=== PATIENT | female | born 2000 | race Caucasian/White ===

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

== ENCOUNTER → 2020-05-30 | Outpatient (CLI) | payer OTHER ==
[2020-05-30 16:05] LABS: Basophils # (A) 0.1 k/uL (0-0.2); Basophils % (A) 1 %; Eosinophils # (A) 0.3 k/uL (0-0.7); Eosinophils % (A) 3 %; HCT 42.5 % (34.0-46.0); HGB 13.6 gm/dL (11.4-16.0); Lymphocytes # (A) 2.5 k/uL (1.0-4.8); Lymphocytes % (A) 29 %; MCH 30.9 pg (25.0-35.0); MCHC 32.1 g/dL (31.0-37.0); MCV 96.2 fL (80.0-100.0); Mean Platelet Volume 8.3; Monocytes # (A) 0.3 k/uL (0-1.0); Monocytes % (A) 4 %; Neutrophils # (A) 5.2 k/uL (1.3-7.7); Neutrophils % (A) 61 %; Platelet Count 186 k/uL (150-450); RBC 4.42 m/uL (3.80-5.40); RDW 12.4 % (11.5-15.5); WBC 8.5 k/uL (3.8-10.6)
== END | disposition home or self-care (01) ==
LOC: LABWHC1 15:03
PROVIDERS: ATTEND Nurse Practitioner
DX: K62.5 Hemorrhage of anus and rectum (principal)
CPT/HCPCS: 36415; 85025

== ENCOUNTER 2020-06-07 09:13 | Day surgery (SDC) | payer OTHER ==
[2020-06-02 13:52] VITALS: BMI 22.4
[~2020-06-07 09:13] MED LIST: LACTATED RINGERS 1,000 ML IV SCH; LIDOCAINE 1% (10MG/ML) FOR IV START INTRADERMA PRN; MIDAZOLAM 2 MG/2 ML VIAL IV PRN
[2020-06-07 09:54] VITALS: TEMP 97.8
[2020-06-07] MEDS ORDERED: LIDOCAINE 1% INJ 10MG/ML (20 ML MDV) ONE (11:14)
[2020-06-07] MEDS ORDERED: PROPOFOL 10 MG/ML 20 ML VIAL IV ONE (11:14)
--- NOTE | 2020-06-07 12:14 | P.PCN ---
Date of Procedure: 06/07/20 Description of Procedure: Brief history: Patient is a pleasant 20-year-old female presenting for evaluation of epigastric abdominal pain and rectal bleeding with EGD and colonoscopy. Reports 2 month history of intermittent blood per rectum associated abdominal pain she reports 10 pound weight loss with decreased oral intake. No family history of inflammatory bowel disease Procedure performed: Esophagogastroduodenoscopy with biopsy Colonoscopy Estimated blood loss: Minimal. Preoperative diagnosis: [place] [facility] [place] After informed consent was obtained from the patient was brought into the endoscopy unit and IV sedation was administered by anesthesia under continuous monitoring. Initially upper endoscopy was done. The Olympus GF 190 video endoscope was inserted into the mouth and esophagus intubated without any difficulty and was gradually advanced into the stomach and duodenum and carefully examined. The bulb and second part of the duodenum appeared normal, with biopsies taken. The scope was then withdrawn into the stomach adequately insufflated with air and upon careful examination the antrum and body, cardia and fundus appeared normal, except for some mild scattered erythema in the antrum and body suggestive of mild gastritis with the patient. The scope was then withdrawn into the esophagus. The GE junction was located at 36 cm to the incisors, biopsies taken. It appeared regular with no erythema erosions or ulcerations. Rest of the esophagus appeared normal. Patient tolerated the procedure well. At this time the patient continued to remain sedation. Initial digital rectal examination was normal. Olympus CF 190 video colonoscope was then inserted into the rectum and gradually advanced to the cecum without any difficulty. Careful examination was performed as the scope was gradually being withdrawn. The prep was excellent. The cecum, ascending colon, transverse colon, descending colon, sigmoid colon and rectum appeared normal, with the colon somewhat redundant prohibiting intubation of the terminal ileum due to looping of the colonoscope. Retroflexion was performed in the rectum and no lesions were noted, low-grade internal hemorrhoids noted. Random biopsies taken of the right and left colon taken in the setting of patient's altered bowel function and blood per rectum. Patient tolerated the procedure well. Impression: 1. Mild gastritis antrum and body biopsied. Biopsies of the GE junction and duodenum. 2. Low-grade internal hemorrhoids, otherwise normal-appearing colon from rectum to cecum with random biopsies taken of the right and left colon. Recommendations: Findings of this examination were discussed with the patient as well as her mother. Okay to resume diet. Okay to resume medications. Would recommend continued local hemorrhoidal care if bleeding. Can also consider imaging study if concerns for other underlying etiology of symptoms persist.
[2020-06-07 12:46] VITALS: BP 106/67
[2020-06-07 13:25] VITALS: PULSE 49; RESP 18
== END 2020-06-07 13:27 | disposition home or self-care (01) ==
LOC: ORWHC2ENDO 09:13
PROVIDERS: ATTEND Internal Medicine
DX: K63.89 Other specified diseases of intestine (principal); Q43.8 Other specified congenital malformations of intestine; K64.8 Other hemorrhoids; K29.51 Unspecified chronic gastritis with bleeding; K20.9 Esophagitis, unspecified; Z98.890 Other specified postprocedural states
CPT/HCPCS: 81025; 88305; 45380; 43239; J2001; J2704

== ENCOUNTER → 2021-03-07 | Outpatient (CLI) | payer OTHER | END | disposition home or self-care (01) | LOC: LABWHC1 09:36 | PROVIDERS: ATTEND Nurse Practitioner Family | DX: Z20.822 Contact with and (suspected) exposure to COVID-19 (principal); R51.9 Headache, unspecified | CPT/HCPCS: U0003; C9803; U0005 ==

== ENCOUNTER → 2023-03-29 | Outpatient (CLI) | payer OTHER ==
[2023-03-29 20:58] LABS: DNA Double-Stranded Negative (Negative)
== END | disposition home or self-care (01) ==
LOC: LABWHC1 14:11
PROVIDERS: ATTEND Family Medicine
DX: I77.6 Arteritis, unspecified (principal)
CPT/HCPCS: 36415; 82784; 86160; 86162; 86225; 86255

== ENCOUNTER → 2023-08-13 | Outpatient (CLI) | payer OTHER | END | disposition home or self-care (01) | LOC: LABWHC1 12:09 | PROVIDERS: ATTEND Internal Medicine Rheumatology | DX: I73.00 Raynaud's syndrome without gangrene (principal) | CPT/HCPCS: 36415; 82784; 82785; 86038 ==

== ENCOUNTER → 2024-04-20 | Outpatient (CLI) | payer BC ==
--- NOTE | 2024-04-21 07:15 | US ---
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
== END | disposition home or self-care (01) ==
LOC: RADUSWWP 15:58
PROVIDERS: ATTEND Family Medicine
DX: E05.90 Thyrotoxicosis, unspecified without thyrotoxic crisis or storm (principal)
CPT/HCPCS: 76536

== ENCOUNTER 2025-03-26 15:47 | Day surgery (SDC) | payer BC ==
[~2025-03-26 15:47] MED LIST changes: -LACTATED RINGERS 1,000 ML IV SCH; -LIDOCAINE 1% (10MG/ML) FOR IV START INTRADERMA PRN; -MIDAZOLAM 2 MG/2 ML VIAL IV PRN; +Pre Op ABX Message 1 EACH MISC MISCELLANE ONE
[2025-03-26 16:00] VITALS: TEMP 97.5
[2025-03-26] MEDS: LACTATED RINGERS 1,000 ML IV ONE ×2 (16:02→18:20)
[2025-03-26] MEDS: ONDANSETRON 4 MG/2 ML VIAL IVP STA (16:11)
[2025-03-26] MEDS: DEXAMETHASONE SOD PHOSPHATE 4 MG/ML 1 ML VIAL IVP STA (16:11)
[2025-03-26] MEDS ORDERED: fentaNYL (PF) 50 MCG/ML 2 ML AMP ONE (16:55)
[2025-03-26] MEDS ORDERED: KETOROLAC 15 MG/ML 1 ML VIAL ONE (16:55)
[2025-03-26] MEDS ORDERED: PROPOFOL 10 MG/ML 20 ML VIAL IV ONE (16:55)
[2025-03-26] MEDS ORDERED: MIDAZOLAM 2 MG/2 ML VIAL ONE (16:55)
[2025-03-26] MEDS ORDERED: LIDOCAINE 1% INJ 10MG/ML (20 ML MDV) ONE (16:55)
[2025-03-26] MEDS: SILVER NITRATE APPLICATOR 1 EACH STICK..EA. TOPICAL ONE (17:22)
--- NOTE | 2025-03-26 17:33 | P.OP ---
Date of Procedure: 03/26/25 Preoperative Diagnosis: Retained products of conception Postoperative Diagnosis: Same Procedure(s) Performed: Suction dilation and curettage Anesthesia: MAC Surgeon: Donna Neumann Estimated Blood Loss (ml): 25 IV fluids (ml): 400 Urine output (ml): 50 (Clear yellow) Pathology: other (Products of conception) Condition: stable Disposition: PACU Indications for Procedure: Retained products of conception Operative Findings: Moderate amount of products of conception appreciate Description of Procedure: Patient was taken back to the operating suite where general anesthesia was obtained without difficulty by the anesthesia department. She was prepped and draped in normal sterile fashion the dorsolithotomy position. A red rubber catheter was used to drain the bladder of clear yellow urine. A weighted speculum was placed in the posterior vaginal vault the antilipid the cervix was visualized and grasped with a single-tooth tenaculum. The cervix was then serially dilated. An 8 curved suction curette was then placed through the cervix and toward the endometrial cavity, suction was activated and a moderate amount of products of conception was were removed after multiple passes. A gentle sharp curettage was performed and an empty cavity was appreciated. Suction was introduced 1 last time to ensure complete evacuation of products of conception. Suction curette was removed the single-tooth tenaculum was taken off of the anterior lip of the cervix and hemostasis was appreciated. All instruments were removed from the patient's vaginal vault. Uterus appeared f irm. All counts were to be correct x 2. Patient tolerated procedure well and was taken to the recovery awake in stable condition
[2025-03-26] MEDS: HYDROmorphone 0.5 MG/0.5 ML SYRINGE IVP STA (17:49)
[2025-03-26 18:38] VITALS: BP 122/78; PULSE 56; RESP 18
== END 2025-03-26 19:01 ==
LOC: OR 15:47
PROVIDERS: ATTEND Obstetrics & Gynecology Obstetrics
DX: O07.1 Delayed or excessive hemorrhage following failed attempted termination of pregnancy (principal); I73.00 Raynaud's syndrome without gangrene
CPT/HCPCS: 59812; 88305; J2250; J1100; J2405; J2003; J3010; J1885; J2704; J1171

== ENCOUNTER → 2025-03-26 | Outpatient (CLI) | payer BC ==
[2025-03-26 15:11] LABS: Basophils # (A) 0.05 X 10*3/uL (0.00-0.10); Basophils % (A) 0.9 %; Eosinophils # (A) 0.11 X 10*3/uL (0.04-0.35); HCT 42.5 % (37.2-46.3); HGB 14.5 g/dL (12.0-15.0); Lymphocytes # (A) 1.69 X 10*3/uL (0.90-5.00); Lymphocytes % (A) 30.8 %; MCH 32.6 pg (27.0-32.0); MCHC 34.1 g/dL (32.0-37.0); MCV 95.5 FL (80.0-97.0); Mean Platelet Volume 10.3 FL (9.5-12.2); Monocytes % (A) 7.3 %; NRBC Per 100 WBC 0 X 10*3/uL (0.00-0.01); Neutrophils # (A) 3.21 X 10*3/uL (1.80-7.70); Neutrophils % (A) 58.6 %; Platelet Count 220 X 10*3/uL (140-440); RBC 4.45 X 10*6/uL (4.10-5.20); RDW 12.3 % (11.5-14.5); WBC 5.48 X 10*3/uL (4.50-10.00)
== END | disposition home or self-care (01) ==
LOC: LABPAT 10:45
PROVIDERS: ATTEND Obstetrics & Gynecology Obstetrics
DX: Z01.812 Encounter for preprocedural laboratory examination (principal); O72.0 Third-stage hemorrhage
CPT/HCPCS: 36415; 85025; 86850; 86900; 86901